=== PATIENT | male | born 1980 | race Caucasian/White ===

== ENCOUNTER 2016-08-11 22:38 | Emergency (ER) | payer OTHER ==
[~2016-08-11] VITALS: Ht 167.6 cm; Wt 102.3 kg
[~2016-08-11 22:38] MED LIST: ATEN100T PO; CIPR500T4 PO; ESCI10TA PO; METR500T PO
[2016-08-11 23:15] VITALS: Ht 167.6 cm; Wt 102.3 kg
[2016-08-11] MEDS ORDERED: KETOROLAC 60 MG INJ IM STA (23:58)
--- NOTE | 2016-08-12 02:02 | RADRPT ---
PROCEDURE: XR Lumbar Spine. CLINICAL INDICATION: Pain. TECHNIQUE: X-ray of the lumbar spine were performed including AP, lateral, and coned L5-S1 views w as performed. COMPARISON: No prior studies are available for comparison. FINDINGS: Vertebral body stature and alignment maintained. There is no evidence of fracture or subluxation. IMPRESSION: No evidence of compression fracture. RPTAT: HIKT .Celso Mclaughlin MD, MD Date Time Electronically viewed and signed by .Celso Mclaughlin MD, on 08/12/2016 02:02 .T/
[2016-08-12] MEDS ORDERED: NAPR-260 PO (02:17)
--- NOTE | 2016-08-12 02:22 | ERD ---
ER Documentation Chief Complaint Date/Time DATE: 08/12/16 TIME: 02:18 Chief Complaint BACK PAIN X 1 WEEK, DENIES RADICULAR PAIN, BOWEL & BLADDER OK HPI 36-year-old male with a past medical history of diverticulitis, chronic back pain, hypertension since the ED complaining of lower back pain that started intermittently since 1995. Describes the pain as achy and rates it a 10/10. States that pain is worse when he moves and upon palpation. States that at this time he had a slip and fall in [place] but no recent injuries. Denies any saddle anesthesia, urine or bowel incontinence, numbness and tingling, chest pain, shortness of breath, abdominal pain, nausea, vomiting. ROS All systems reviewed and are negative except as per history of present illness. Medications Home Meds Active Scripts Metronidazole* (Flagyl*) 500 Mg Tablet, 500 MG PO TID for 10 Days, TAB do not drink alcohol while taking this medication Prov:DANNIE SAGE PA-C 06/08/16 Ciprofloxacin Hcl* (Ciprofloxacin Hcl*) 500 Mg Tablet, 500 MG PO BID for 10 Days , TAB Prov:DANNIE SAGE PA-C 06/08/16 Reported Medications Escitalopram Oxalate* (Lexapro*) 10 Mg Tablet, 10 MG PO DAILY, #30 TAB 03/18/16 Atenolol* (Atenolol*) 100 Mg Tablet, 100 MG PO DAILY, #30 TAB 03/18/16 Allergies Allergies: Coded Allergies: No Known Drug Allergies (Verified Allergy, Unknown, 05/23/16) PMhx/Soc History of Surgery: No Anesthesia Reaction: No Hx Neurological Disorder: No Hx Respiratory Disorders: No Hx Cardiac Disorders: Yes (HTN) Hx Psychiatric Problems: Yes (ANXIETY, DEPRESSION) Hx Miscellaneous Medical Probl: Yes (HYPOTHYROID) Hx Alcohol Use: No Hx Substance Use: No Hx Tobacco Use: No Smoking Status: Never smoker Physical Exam Vitals Vital Signs Date Time Temp Pulse Resp B/P Pulse Ox O2 Delivery O2 Flow Rate FiO2 08/12/16 02:33 97.8 87 20 137/80 98 Room Air 08/11/16 23:15 99.6 120 20 179/95 99 Physical Exam Const: [id number], well-nourished. In no acute distress. Head: Atraumatic, normocephalic Eyes: Normal Conjunctiva without injection. No purulent discharge. ENT: Normal external ear, nose. Moist oropharynx without tonsillar exudates. Non -erythematous pharynx. Uvula midline. No drooling. No trismus. Neck: No cervical midline tenderness. Full range of motion. No meningismus. No cervical lymphadenopathy. No JVD. Resp: Clear to auscultation bilaterally. No wheezing, rhonchi, rales, or crackles. No accessory muscle use. No retractions. Cardio: Regular rate and rhythm. No murmurs, rubs or gallops. Abd: Soft, nontender, non distended. Normal bowel sounds. No palpable masses. No rebound tenderness. No guarding. Negative McBurney's point. Negative psoas sign. Negative obturator sign. Skin: No petechiae or rashes Back: Slight lumbar midline tenderness. Limited range of motion due to pain. Tender to palpation of the lumbar muscles. Pain is reproducible. No CVA tenderness. Ext: No cyanosis, or edema. Neur: Awake and alert. Normal gait. Normal coordination. Psych: Normal Mood and Affect Results 24 hrs Current Medications Medications (Trade) Dose Ordered Sig/Derrek Route PRN Reason Start Time Stop Time Status Last Admin Dose Admin Ketorolac Tromethamine (Toradol) 60 mg ONCE STAT IM 08/11/16 23:58 08/12/16 00:00 DC 08/12/16 01:10 Procedures/MDM This is a 36-year-old male with no significant past medical history presents the ED complaining of chronic lower back pain that has worsened since 1 week ago. Patient is afebrile and nontoxic-appearing. Patient does have midline tenderness, lumbar x-ray was ordered to further evaluate patient. Patient was treated with Toradol here in the ED with improvement of his pain. PROCEDURE: XR Lumbar Spine. CLINICAL INDICATION: Pain. TECHNIQUE: X-ray of the lumbar spine were performed including AP, lateral, and coned L5-S1 views was performed. COMPARISON: No prior studies are available for comparison. FINDINGS: Vertebral body stature and alignment maintained. There is no evidence of fracture or subluxation. IMPRESSION: No evidence of compression fracture. Patient's pain could likely be due to muscular pain since it is worse with movement and is painful upon palpation of lumbar muscles. Patient is ambulating here in the ED without difficulty. Denies saddle anesthesia, numbness or tingling, urine or bowel incontinence, weakness. Low suspicion for cauda equina syndrome, cord compression, nephrolithiasis, aortic aneurysm, aortic dissection , epidural abscess, spinal hematoma, malignancy, pyelonephritis, degenerative disc disease, spinal stenosis, or other emergent conditions. Follow up with primary care physician in 1-2 days for a referral to pain specialist. Instructed patient to return to the ED sooner for any worsening symptoms. Patient's questions were answered. Patient understood and agreed with discharge plan. Patient discharged stable. Departure Diagnosis: Primary Impression: Back pain Back pain location: back pain in unspecified location Chronicity: unspecified Back pain laterality: unspecified Qualified Code: M54.9 - Back pain, unspecified back location, unspecified back pain laterality, unspecified chronicity Condition: Stable Patient Instructions: Back Pain (Acute Or Chronic) Referrals: [facility] YOU HAVE RECEIVED A MEDICAL SCREENING EXAM AND THE RESULTS INDICATE THAT YOU DO NOT HAVE A CONDITION THAT REQUIRES URGENT TREATMENT IN THE EMERGENCY DEPARTMENT. FURTHER EVALUATION AND TREATMENT OF YOUR CONDITION CAN WAIT UNTIL YOU ARE SEEN IN YOUR DOCTORS OFFICE WITHIN THE NEXT 1-2 DAYS. IT IS YOUR RESPONSIBILITY TO MAKE AN APPOINTMENT FOR FOLOW-UP CARE. IF YOU HAVE A PRIMARY DOCTOR --you should call your primary doctor and schedule an appointment IF YOU DO NOT HAVE A PRIMARY DOCTOR YOU CAN CALL OUR PHYSICIAN REFERRAL HOTLINE AT IF YOU CAN NOT AFFORD TO SEE A PHYSICIAN YOU CAN CHOSE FROM THE FOLLOWING [facility] [address] [facility]. [facility] [address] [facility]. [facility] [address] [facility]. [facility] [address] [facility]. [facility] [address] [facility]. [facility]. [address] [facility] YOU HAVE RECEIVED A MEDICAL SCREENING EXAM AND THE RESULTS INDICATE THAT YOU DO NOT HAVE A CONDITION THAT REQUIRES URGENT TREATMENT IN THE EMERGENCY DEPARTMENT. FURTHER EVALUATION AND TREATMENT OF YOUR CONDITION CAN WAIT UNTIL YOU ARE SEEN IN YOUR DOCTORS OFFICE WITHIN THE NEXT 1-2 DAYS. IT IS YOUR RESPONSIBILITY TO MAKE AN APPOINTMENT FOR FOLOW-UP CARE. IF YOU HAVE A PRIMARY DOCTOR --you should call your primary doctor and schedule and appointment IF YOU DO NOT HAVE A PRIMARY DOCTOR YOU CAN CALL OUR PHYSICIAN REFERRAL HOTLINE AT . IF YOU CAN NOT AFFORD TO SEE A PHYSICIAN YOU CAN CHOSE FROM THE FOLLOWING [facility] INSTITUTIONS: [facility] [address] [place] [address] [facility] [address] [place] [address] [facility] + [facility] [address] [place] [address] [facility] 7 a.m.- 11 p.m. Every Day of the Week NO APPOINTMENT OR AUTHORIZATION NEEDED SO [facility] Hours: Mon-Fri 9:00 AM - 5:00 PM Additional Instructions: FOLLOW UP WITH YOUR PRIMARY CARE PHYSICIAN TOMORROW.Return to this facility if you are not improving as expected. DANNIE SAGE PA-C Aug 12, 2016 02:22
[2016-08-12 02:33] VITALS: BP 137/80; PULSE 87; RESP 20; TEMP 97.8
== END 2016-08-12 02:35 | disposition home or self-care (01) ==
LOC: FTE 22:38
DX: M54.5 Low back pain (principal); E03.9 Hypothyroidism, unspecified; I10 Essential (primary) hypertension; E11.9 Type 2 diabetes mellitus without complications
CPT/HCPCS: 72100; 96372; J1885; Z7502

== ENCOUNTER 2017-06-20 22:36 | Emergency (ER) | END 2017-06-21 08:25 | disposition left against medical advice (07) ==

== ENCOUNTER 2018-01-02 13:02 | Emergency (ER) | END 2018-01-02 14:38 | disposition home or self-care (01) ==

== ENCOUNTER 2018-06-07 17:49 | Emergency (ER) | END 2018-06-07 19:50 | disposition home or self-care (01) ==

== ENCOUNTER 2018-06-11 20:06 | Emergency (ER) | END 2018-06-11 22:48 | disposition home or self-care (01) ==

== ENCOUNTER 2018-07-21 23:35 | Emergency (ER) | payer OTHER ==
[~2018-07-21] VITALS: Ht 167.6 cm; Wt 92.9 kg
[~2018-07-21 23:35] MED LIST changes: +ACET160O41 PO; +ACET325T33 PO; +AMOX1TAB10 PO; +DOCU-144 PO; +HC30CR25 TOP; +IBUP-1542 PO; +IBUP800T48 PO; +MED4DP PO
[2018-07-21 23:39] VITALS: BP 162/92; PULSE 103; RESP 20; Ht 167.6 cm; Wt 92.9 kg
--- NOTE | 2018-07-22 00:02 | ERD ---
ER Documentation Chief Complaint Chief Complaint Dizziness, lump on arm and neck HPI 37-year-old male presents with abrasion to his left forearm and posterior scalp. He first noticed it today and has been scratching at it and feels like there is a bump underneath each. No bleeding. No fevers. No warmth. Nontender. ROS All systems reviewed and are negative except as per history of present illness. Medications Home Meds Active Scripts Acetaminophen* (Acetaminophen* Susp) 160 Mg/5 Ml Oral.susp, 320 MG PO Q4H PRN for PAIN OR FEVER MDD 5, #1 BOTTLE Prov:CAIO LAUGHLIN PA-C 06/11/18 Acetaminophen* (Tylenol*) 325 Mg Tablet, 2 TAB PO Q8 PRN for PAIN AND OR ELEVATED TEMP, #20 TAB Prov:CAIO LAUGHLIN PA-C 06/11/18 Methylprednisolone* (Medrol* DOSE PACK) 4 Mg/Dose-Pack Tab.ds.pk, 4 MG PO . DIRECTED, #1 PACKET Prov:CAIO LAUGHLIN PA-C 06/11/18 Ibuprofen* (Motrin*) 800 Mg Tab, 800 MG PO Q6, #30 TAB Prov:CAIO LAUGHLIN PA-C 06/11/18 Amoxicillin/Potassium Clav (Amox-Clav 875-125 mg Tablet) 875-125 mg Tab, 1 TAB PO BID for 7 Days, #14 TAB Prov:CAIO LAUGHLIN PA-C 06/11/18 Ibuprofen* (Motrin*) 600 Mg Tab, 600 MG PO Q6, #30 TAB Prov:AAMIR LO PA-C 06/07/18 Hydrocortisone* Topical (Hydrocortisone* Topical) 2.5%-28.3 Gm Cream..g., 1 APPLIC TOP BID, #1 TUB Prov:CARMEN GLEZ MD 01/02/18 Docusate Sodium* (Colace*) 100 Mg Capsule, 100 MG PO BID, #30 CAP Prov:CARMEN GLEZ MD 01/02/18 Metronidazole* (Flagyl*) 500 Mg Tablet, 500 MG PO TID for 10 Days, TAB do not drink alcohol while taking this medication Prov:DANNIE SAGE PA-C 06/08/16 Ciprofloxacin Hcl* (Ciprofloxacin Hcl*) 500 Mg Tablet, 500 MG PO BID for 10 Days, TAB Prov:SAGEDANNIE Genoveva JIMENEZ 06/08/16 Reported Medications Escitalopram Oxalate* (Lexapro*) 10 Mg Tablet, 10 MG PO DAILY, #30 TAB 03/18/16 Atenolol* (Atenolol*) 100 Mg Tablet, 100 MG PO DAILY, #30 TAB 03/18/16 Allergies Allergies: Coded Allergies: No Known Drug Allergies (Verified Allergy, Unknown, 05/23/16) PMhx/Soc History of Surgery: No Anesthesia Reaction: No Hx Neurological Disorder: Yes Hx Respiratory Disorders: No Hx Cardiac Disorders: Yes (HTN, ) Hx Psychiatric Problems: Yes (ANXIETY) Hx Miscellaneous Medical Probl: Yes (HYPOTHYROID) Hx Alcohol Use: No Hx Substance Use: No Hx Tobacco Use: No Smoking Status: Never smoker FmHx Family History: No diabetes Physical Exam Vitals Vital Signs Date Temp Pulse Resp B/P (MAP) Pulse Ox O2 O2 Flow FiO2 Time Delivery Rate 07/21/18 98.0 103 20 162/92 99 23:39 (115) Physical Exam Const: No acute distress Head: Atraumatic Eyes: Normal Conjunctiva ENT: Normal External Ears, Nose and Mouth. Neck: Full range of motion. No meningismus. Resp: Clear to auscultation bilaterally Cardio: Regular rate and rhythm, no murmurs Skin: Left distal forearm has small abrasion, no surrounding erythema or edema, similar lesion on posterior occipital scalp Procedures/MDM Patient presents with abrasion. They do not appear infected. No indication for further intervention at this time. Patient counseled regarding my diagnostic impression and care plan. Prior to discharge all questions answered. Pt agrees with treatment plan and understands strict return precautions. Pt is instructed to follow up with primary care provider within 24-48 hours. Precautionary instructions provided including instructions to return to the ER if not improving or for any worsening or changing symptoms or concerns. Departure Diagnosis: Primary Impression: Abrasion Condition: Stable Patient Instructions: Abrasion Additional Instructions: Call your primary care doctor TOMORROW for an appointment during the next 1-2 days.See the doctor sooner or return here if your condition worsens before your appointment time. LUIZ MEDINA PA-C Jul 22, 2018 00:02
== END 2018-07-22 00:38 | disposition home or self-care (01) ==
LOC: FTE 23:35
DX: S50.812A Abrasion of left forearm, initial encounter (principal); S00.01XA Abrasion of scalp, initial encounter; I10 Essential (primary) hypertension; E03.9 Hypothyroidism, unspecified; X58.XXXA Exposure to other specified factors, initial encounter; Y92.9 Unspecified place or not applicable
CPT/HCPCS: 99282

== ENCOUNTER 2018-08-21 18:54 | Emergency (ER) | payer OTHER ==
[~2018-08-21] VITALS: Ht 157.5 cm; Wt 91.4 kg
[2018-08-21 19:00] VITALS: Ht 157.5 cm; Wt 91.4 kg
[2018-08-21] MEDS ORDERED: IBUP-1542 PO (21:36)
[2018-08-21] MEDS ORDERED: CEPH-443 PO (21:36)
[2018-08-21] MEDS ORDERED: MUPI22OI2 TOP (21:36)
--- NOTE | 2018-08-21 21:47 | ERD ---
ER Documentation Chief Complaint Chief Complaint left 3rd finger pain x 3 days. denies trauma HPI Patient is a 38-year-old male with history of hypothyroidism, hypertension, and depression who presents to the ED with his sister with complaints of left middle finger pain for the past 3 days. Patient states the pain was initially mild but has since been getting progressively worse. He notes swelling and redness along the proximal nail fold of his left middle finger. Denies any discharge. Denies any known trauma. Denies any history of same. Patient has been taking o [id number] ibuprofen with minimal relief. Denies any fevers, chills, numbness, tingling, focal weakness. No other complaints. ROS All systems reviewed and are negative except as per history of present illness. Medications Home Meds Active Scripts Mupirocin* (Bactroban*) 2% -22 Gram Oint...g., 1 APPLIC TOP BID for 7 Days, EA Prov:LALA FRANCOC 08/21/18 Ibuprofen* (Ibuprofen*) 600 Mg Tablet, 600 MG PO Q6, #30 TAB Prov:LALA FRANCO-C 08/21/18 Cephalexin* (Keflex*) 500 Mg Capsule, 500 MG PO QID for 5 Days, CAP Prov:LALA FRANCO-C 08/21/18 Acetaminophen* (Acetaminophen* Susp) 160 Mg/5 Ml Oral.susp, 320 MG PO Q4H PRN for PAIN OR FEVER MDD 5, #1 BOTTLE Prov:CAIO LAUGHLIN PA-C 06/11/18 Acetaminophen* (Tylenol*) 325 Mg Tablet, 2 TAB PO Q8 PRN for PAIN AND OR ELEVATED TEMP, #20 TAB Prov:CAIO LAUGHLIN PA-C 06/11/18 Methylprednisolone* (Medrol* DOSE PACK) 4 Mg/Dose-Pack Tab.ds.pk, 4 MG PO . DIRECTED, #1 PACKET Prov:CAIO LAUGHLIN PA-C 06/11/18 Ibuprofen* (Motrin*) 800 Mg Tab, 800 MG PO Q6, #30 TAB Prov:CAIO LAUGHLIN PA-C 06/11/18 Amoxicillin/Potassium Clav (Amox-Clav 875-125 mg Tablet) 875-125 mg Tab, 1 TAB PO BID for 7 Days, #14 TAB Prov:CAIO LAUGHLIN PA-C 06/11/18 Ibuprofen* (Motrin*) 600 Mg Tab, 600 MG PO Q6, #30 TAB Prov:AAMIR LO PA-C 06/07/18 Hydrocortisone* Topical (Hydrocortisone* Topical) 2.5%-28.3 Gm Cream..g., 1 APPLIC TOP BID, #1 TUB Prov:CARMEN GLEZ MD 01/02/18 Docusate Sodium* (Colace*) 100 Mg Capsule, 100 MG PO BID, #30 CAP Prov:CARMEN GLEZ MD 01/02/18 Metronidazole* (Flagyl*) 500 Mg Tablet, 500 MG PO TID for 10 Days, TAB do not drink alcohol while taking this medication Prov:DANNIE SAGE PA-C 06/08/16 Ciprofloxacin Hcl* (Ciprofloxacin Hcl*) 500 Mg Tablet, 500 MG PO BID for 10 Days, TAB Prov:DANNIE SAGE PA-C 06/08/16 Reported Medications Escitalopram Oxalate* (Lexapro*) 10 Mg Tablet, 10 MG PO DAILY, #30 TAB 03/18/16 Atenolol* (Atenolol*) 100 Mg Tablet, 100 MG PO DAILY, #30 TAB 03/18/16 Allergies Allergies: Coded Allergies: No Known Drug Allergies (Verified Allergy, Unknown, 05/23/16) PMhx/Soc History of Surgery: No Anesthesia Reaction: No Hx Neurological Disorder: Yes Hx Respiratory Disorders: No Hx Cardiac Disorders: Yes (HTN, ) Hx Psychiatric Problems: Yes (ANXIETY) Hx Miscellaneous Medical Probl: Yes (HYPOTHYROID) Hx Alcohol Use: No Hx Substance Use: No Hx Tobacco Use: No Physical Exam Vitals Vital Signs Date Temp Pulse Resp B/P (MAP) Pulse Ox O2 O2 Flow FiO2 Time Delivery Rate 08/21/18 98.6 111 19 143/95 98 Room Air 21:51 (111) 08/21/18 97.9 120 18 147/80 97 19:00 (102) Physical Exam Const: No acute distress. + Disheveled. Smells of urine. Sitting in wheelchair. Skin: + Erythema and edema along the proximal nailfold of the left middle finger. No abscess seen. Neur: Awake and alert Psych: Normal Mood and Affect Procedures/MDM EMERGENCY DEPARTMENT COURSE / MEDICAL DECISION MAKING: This is a 38-year-old male who presents to the ED with complaints of a paronychia to his left middle finger. Patient has no signs of an abscess or purulent collection on physical exam. I discussed with patient and his sister that I do not think incision and drainage is appropriate at this time. I believe his symptoms can be managed at home with appropriate outpatient therapy. Patient was therefore discharged home with a prescription for oral Keflex and topical mupirocin. I recommended warm water soaks to the finger at least 4 times a day and Ibuprofen for pain. He was told to follow-up with his regular doctor in 2 days, otherwise return to the ED for any new or worsening symptoms. I have low suspicion for sepsis, deep tissue infection, necrotizing fasciitis, testifies any other emergent process. Prior to discharge, patients vital signs have been reviewed SPECIALIST FOLLOW UP RECOMMENDED: None Patient has been advised to follow up with primary care in 1-2 days. Blood Pressure Assessment: Patient's blood pressure was elevated (>120/80) but appears stable without evidence of hypertension emergency or urgency. The patient was counseled about the risks of hypertension and urged to pursue outpatient monitoring and therapy within a week with their primary care physician. Departure Diagnosis: Primary Impression: Paronychia of finger Condition: Stable Patient Instructions: Paronychia Referrals: [facility] YOU HAVE RECEIVED A MEDICAL SCREENING EXAM AND THE RESULTS INDICATE THAT YOU DO NOT HAVE A CONDITION THAT REQUIRES URGENT TREATMENT IN THE EMERGENCY DEPARTMENT. FURTHER EVALUATION AND TREATMENT OF YOUR CONDITION CAN WAIT UNTIL YOU ARE SEEN IN YOUR DOCTORS OFFICE WITHIN THE NEXT 1-2 DAYS. IT IS YOUR RESPONSIBILITY TO MAKE AN APPOINTMENT FOR FOL-UP CARE. IF YOU HAVE A PRIMARY DOCTOR --you should call your primary doctor and schedule an appointment IF YOU DO NOT HAVE A PRIMARY DOCTOR YOU CAN CALL OUR PHYSICIAN REFERRAL HOTLINE AT IF YOU CAN NOT AFFORD TO SEE A PHYSICIAN YOU CAN CHOSE FROM THE FOLLOWING [facility] [address] [facility] [address] [facility] [address] [facility] [address] [facility] [address] [facility]. [facility] [address] Additional Instructions: I recommend warm water soaks 4 times a day for about 10 minutes each. You can apply the topical antibiotic after soaking her finger. Also take the oral antibiotic as prescribed. See your regular doctor in 2 days otherwise return to the ED for any new or worsening symptoms. LALA FRANCO PA-C Aug 21, 2018 21:47
[2018-08-21 21:51] VITALS: BP 143/95; PULSE 111; RESP 19
== END 2018-08-21 21:53 | disposition home or self-care (01) ==
LOC: FTE 18:54
DX: L03.012 Cellulitis of left finger (principal); E03.9 Hypothyroidism, unspecified; I10 Essential (primary) hypertension
CPT/HCPCS: 99283

== ENCOUNTER 2018-09-17 18:53 | Emergency (ER) | payer MEDICARE, OTHER ==
[~2018-09-17] VITALS: Ht 157.5 cm; Wt 92.3 kg
[~2018-09-17 18:53] MED LIST changes: +CEPH-443 PO; +MUPI22OI2 TOP
[2018-09-17 19:37] VITALS: BP 141/70; PULSE 106; RESP 18; Ht 157.5 cm; Wt 92.3 kg
[2018-09-17] MEDS ORDERED: ACETAMINOPHEN 500 MG TAB PO STA (23:24)
[2018-09-18] MEDS ORDERED: CIPR500T4 PO (01:00)
[2018-09-18] MEDS ORDERED: ACET500C5 PO (01:00)
--- NOTE | 2018-09-18 01:16 | ERD ---
ER Documentation Chief Complaint Chief Complaint generalized AP X 1 day HPI Patient is a 30-year-old male with a history of hypertension, hypothyroidism, diverticulitis, presents the ER for concerns of generalized abdominal pain times 1 day. Patient describes the pain to be sharp and throughout his abdomen. Patient states he occasionally does have diarrhea however at this time he does not have any.. Patient denies fevers, chills, nausea, vomiting, rectal bleeding. Patient denies any chest pain or shortness of breath. Patient denies any recent travel. ROS All systems reviewed and are negative except as per history of present illness. Medications Home Meds Active Scripts Acetaminophen* (Tylophen*) 500 Mg Capsule, 1 CAP PO Q6H PRN for PAIN AND OR ELEVATED TEMP, #20 CAP Prov:CESIA GAGE PA-C 09/18/18 Ciprofloxacin Hcl* (Ciprofloxacin Hcl*) 500 Mg Tablet, 500 MG PO BID for 7 Days, TAB Prov:CESIA GAGE PA-C 09/18/18 Mupirocin* (Bactroban*) 2% -22 Gram Oint...g., 1 APPLIC TOP BID for 7 Days, EA Prov:DISHIGRIKIANLALA N PA-C 08/21/18 Ibuprofen* (Ibuprofen*) 600 Mg Tablet, 600 MG PO Q6, #30 TAB Prov:LUANNIGRIKIANALVINAUR N PA-C 08/21/18 Cephalexin* (Keflex*) 500 Mg Capsule, 500 MG PO QID for 5 Days, CAP Prov:DISHIGRIKIANZEPYUR N PA-C 08/21/18 Acetaminophen* (Acetaminophen* Susp) 160 Mg/5 Ml Oral.susp, 320 MG PO Q4H PRN for PAIN OR FEVER MDD 5, #1 BOTTLE Prov:CAIO LAUGHLINC 06/11/18 Acetaminophen* (Tylenol*) 325 Mg Tablet, 2 TAB PO Q8 PRN for PAIN AND OR ELEVATED TEMP, #20 TAB Prov:CAIO LAUGHLINC 06/11/18 Methylprednisolone* (Medrol* DOSE PACK) 4 Mg/Dose-Pack Tab.ds.pk, 4 MG PO . DIRECTED, #1 PACKET Prov:CAIO LAUGHLIN PA-C 06/11/18 Ibuprofen* (Motrin*) 800 Mg Tab, 800 MG PO Q6, #30 TAB Prov:CAIO LAUGHLIN PA-C 06/11/18 Amoxicillin/Potassium Clav (Amox-Clav 875-125 mg Tablet) 875-125 mg Tab, 1 TAB PO BID for 7 Days, #14 TAB Prov:CAIO LAUGHLIN PA-C 06/11/18 Ibuprofen* (Motrin*) 600 Mg Tab, 600 MG PO Q6, #30 TAB Prov:AAMIR LO PA-C 06/07/18 Hydrocortisone* Topical (Hydrocortisone* Topical) 2.5%-28.3 Gm Cream..g., 1 APPLIC TOP BID, #1 TUB Prov:CARMEN GLEZ MD 01/02/18 Docusate Sodium* (Colace*) 100 Mg Capsule, 100 MG PO BID, #30 CAP Prov:CARMEN GLEZ MD 01/02/18 Metronidazole* (Flagyl*) 500 Mg Tablet, 500 MG PO TID for 10 Days, TAB do not drink alcohol while taking this medication Prov:DANNIE SAGE PA-C 06/08/16 Ciprofloxacin Hcl* (Ciprofloxacin Hcl*) 500 Mg Tablet, 500 MG PO BID for 10 Days, TAB Prov:DANNIE SAGE PA-C 06/08/16 Reported Medications Escitalopram Oxalate* (Lexapro*) 10 Mg Tablet, 10 MG PO DAILY, #30 TAB 03/18/16 Atenolol* (Atenolol*) 100 Mg Tablet, 100 MG PO DAILY, #30 TAB 03/18/16 Allergies Allergies: Coded Allergies: No Known Drug Allergies (Verified Allergy, Unknown, 05/23/16) PMhx/Soc History of Surgery: No Anesthesia Reaction: No Hx Neurological Disorder: Yes Hx Respiratory Disorders: No Hx Cardiac Disorders: Yes (HTN, ) Hx Psychiatric Problems: Yes (ANXIETY) Hx Miscellaneous Medical Probl: Yes (HYPOTHYROID) Hx Alcohol Use: No Hx Substance Use: No Hx Tobacco Use: No FmHx Family History: No diabetes Physical Exam Vitals Vital Signs Date Temp Pulse Resp B/P (MAP) Pulse Ox O2 O2 Flow FiO2 Time Delivery Rate 09/17/18 98.3 106 18 141/70 96 19:37 (93) Physical Exam GENERAL: Well-developed, well-nourished male. Appears in no acute distress. HEAD: Normocephalic, atraumatic. EYES: Pupils are equally reactive bilaterally. EOMs grossly intact. No conjunctival erythema. ENT: Moist mucous membranes. No uvula deviation. No kissing tonsils. NECK: Supple. No meningismus. Normal range of motion of the neck. LUNG: Clear to auscultation bilaterally. No rhonchi, wheezing, rales or coarse breath sounds. HEART: Regular rate and rhythm. No murmurs, rubs or gallops. ABDOMEN: Diffuse pain throughout the abdomen. No rebound tenderness, no guarding. (-) McBurney's point tenderness. No CVA tenderness. BACK: No midline tenderness. EXTREMITIES: Equal pulses bilaterally. No peripheral clubbing, cyanosis or edema. No unilateral leg swelling. NEUROLOGIC: Alert and oriented. Moving all four extremities without any difficulty. Normal speech. Steady gait. SKIN: Normal color. Warm and dry. No rashes or lesions. Result Diagram: 09/17/18 2348 09/17/18 2348 Results 24 hrs Laboratory Tests Test 09/17/18 23:47 09/17/18 23:48 Urine Color YELLOW Urine Clarity SLIGHTLY CLOUDY Urine pH 6.0 Urine Specific [place] 1.015 Urine Ketones NEGATIVE mg/dL Urine Nitrite NEGATIVE mg/dL Urine Bilirubin NEGATIVE mg/dL Urine Urobilinogen NEGATIVE mg/dL Urine Leukocyte Esterase 1+ Anahi/ul Urine Microscopic RBC 1 /HPF Urine Microscopic WBC 24 /HPF Urine Squamous Epithelial Cells FEW /HPF Urine Mucus FEW /HPF Urine Hemoglobin NEGATIVE mg/dL Urine Glucose NEGATIVE mg/dL Urine Total Protein NEGATIVE mg/dl White Blood Count 8.0 10^3/ul Red Blood Count 5.54 10^6/ul Hemoglobin 15.5 g/dl Hematocrit 47.9 % Mean Corpuscular Volume 86.5 fl Mean Corpuscular Hemoglobin 28.0 pg Mean Corpuscular Hemoglobin Concent 32.4 g/dl Red Cell Distribution Width 12.3 % Platelet Count 257 10^3/UL Mean Platelet Volume 11.8 fl Immature Granulocytes % 0.400 % Neutrophils % 58.5 % Lymphocytes % 29.6 % Monocytes % 8.3 % Eosinophils % 2.3 % Basophils % 0.9 % Nucleated Red Blood Cells % 0.0 /100WBC Immature Granulocytes # 0.030 10^3/ul Neutrophils # 4.7 10^3/ul Lymphocytes # 2.4 10^3/ul Monocytes # 0.7 10^3/ul Eosinophils # 0.2 10^3/ul Basophils # 0.1 10^3/ul Nucleated Red Blood Cells # 0.0 10^3/ul Sodium Level 141 mmol/L Potassium Level 4.1 mmol/L Chloride Level 99 mmol/L Carbon Dioxide Level 29 mmol/L Anion Gap 13 Blood Urea Nitrogen 5 mg/dl Creatinine 0.68 mg/dl Est Glomerular Filtrat Rate mL/min > 60 mL/min Glucose Level 99 mg/dl Calcium Level 9.2 mg/dl Total Bilirubin 0.4 mg/dl Direct Bilirubin 0.00 mg/dl Indirect Bilirubin 0.4 mg/dl Aspartate Amino Transf (AST/SGOT) 25 IU/L Alanine Aminotransferase (ALT/SGPT) 21 IU/L Alkaline Phosphatase 85 IU/L Total Protein 8.3 g/dl Albumin 4.6 g/dl Globulin 3.70 g/dl Albumin/Globulin Ratio 1.24 Lipase 57 U/L Current Medications Medications Dose Sig/Derrek Start Time Status Last (Trade) Ordered Route PRN Stop Time Admin Dose Reason Admin 1,000 mg ONCE STAT 09/17/18 DC 09/17/18 Acetaminophen PO 23:24 23:36 (Tylenol 09/17/18 23:25 Tab) Procedures/MDM Patient: LITO LOCO : 1980 Age: 38 Sex: M MR #: [id number] DOS: 09/17/18 2324 Ordering MD: CESIA GAGE PA-C Location: [facility] Room/Bed: PROCEDURE: CT Abdomen and Pelvis Without Intravenous Contrast CLINICAL INDICATION: Abdominal pain. TECHNIQUE: Axial computed tomography images of the abdomen and pelvis without intravenous contrast. Sagittal and coronal reformatted images were created and reviewed. CTDIvol (mGy) = 13.93; total DLP (mGy-cm) = 926.56. This CT exam was performed using one or more of the following dose reduction techniques: automated exposure control, adjustment of the mA and/or kV according to patient size, a nd/or use of iterative reconstruction technique. DICOM images are available. COMPARISON: None FINDINGS: LUNG BASES: Unremarkable. No mass. No consolidation. ABDOMEN: LIVER: Unremarkable. GALLBLADDER AND BILE DUCTS: Unremarkable. No calcified stones. No ductal dilation. PANCREAS: Unremarkable. No ductal dilation. SPLEEN: Unremarkable. No splenomegaly. ADRENALS: Unremarkable. No mass. KIDNEYS AND URETERS: 1.6 cm left renal cyst. The kidneys are otherwise morph ologically normal. No nephrolithiasis. No hydronephrosis. No obstructive uropathy. STOMACH AND BOWEL: Small hiatal hernia. No acute gastric abnormality. Mild diverticulosis of the colon. No findings of acute diverticulitis. No obstruction. PELVIS: APPENDIX: No findings to suggest acute appendicitis. BLADDER: Unremarkable. No stones. REPRODUCTIVE: Unremarkable as visualized. ABDOMEN and PELVIS: INTRAPERITONEAL SPACE: Unremarkable. No free air. No significant fluid collection. BONES/JOINTS: No acute fracture. No dislocation. SOFT TISSUES: Unremarkable. VASCULATURE: Unremarkable. LYMPH NODES: Unremarkable. No enlarged lymph nodes. IMPRESSION: 1. Mild diverticulosis of the colon. No findings of acute diverticulitis. 2. No acute abnormality demonstrated in the abdomen and pelvis. RPTAT: [facility] Staci Esparza Physician Set Off Blocker Date Time Electronically viewed and signed by Staci Esparza Physician Set Off Blocker on 09/18/2018 00:51 C/ CC: CESIA GAGE PA-C [id number] MEDICAL DECISION MAKING: This is a 38-year-old male with history of diverticulitis, hypertension, hypothyroidism, presents the ER for concerns of diffuse abdominal pain times 1 day.. Vital signs were reviewed. Patient is afebrile. Blood work was obtained. CBC showed no evidence of systemic infection or severe anemia. CMP showed no evidence of electrolyte abnormalities, severe acidosis, alkalosis, renal failure, or liver disease. Lipase showed no evidence of acute pancreatitis. UA did show 1+ leukocyte esterase, positive WBCs. Urine was sent for culture. CT abdomen pelvis showed findings consistent with diverticulosis however no evidence of diverticulitis. At this time, patient's presentation is most consistent with diverticulosis and UTI. Differential diagnosis included but was not limited to acute coronary syndrome, AAA, mesenteric ischemia, lower lobe pneumonia, DKA, bowel perforation, cholecystitis, choledocholithiasis, ascending cholangitis, hepatic abscess, pancreatitis, PUD, gastritis, GERD, splenic rupture, diverticulitis, pyelonephritis, nephrolithiasis, appendicitis, constipation, testicular torsion, epididymitis, urethritis, or prostatitis. She was nontoxic, [id number] prior to discharge. PRESCRIPTIONS: Tylenol, ciprofloxacin DISCHARGE: At this time, patient is stable for discharge and outpatient management. I have instructed the patient to follow-up with his/her primary care physician in 1-2 days. I have instructed the patient to promptly return to the ER at any time for any new or worsening symptoms including increased pain, nausea, vomiting, diarrhea, fever, weakness or LOC. The patient and/or family expressed understanding of and agreement with this plan. All questions were answered. Home care instructions were provided. Disclaimer: Inadvertent spelling and grammatical errors are likely due to EHR/dictation software use and do not reflect on the overall quality of patient care. Also, please note that the electronic time recorded on this note does not necessarily reflect the actual time of the patient encounter. Departure Diagnosis: Primary Impression: Diverticulosis Additional Impression: UTI (urinary tract infection) Condition: Stable Patient Instructions: Understanding Urinary Tract Infections (UTIs) Referrals: [facility] YOU HAVE RECEIVED A MEDICAL SCREENING EXAM AND THE RESULTS INDICATE THAT YOU DO NOT HAVE A CONDITION THAT REQUIRES URGENT TREATMENT IN THE EMERGENCY DEPARTMENT. FURTHER EVALUATION AND TREATMENT OF YOUR CONDITION CAN WAIT UNTIL YOU ARE SEEN IN YOUR DOCTORS OFFICE WITHIN THE NEXT 1-2 DAYS. IT IS YOUR RESPONSIBILITY TO MAKE AN APPOINTMENT FOR FOLOW-UP CARE. IF YOU HAVE A PRIMARY DOCTOR --you should call your primary doctor and schedule an appointment IF YOU DO NOT HAVE A PRIMARY DOCTOR YOU CAN CALL OUR PHYSICIAN REFERRAL HOTLINE AT IF YOU CAN NOT AFFORD TO SEE A PHYSICIAN YOU CAN CHOSE FROM THE FOLLOWING [facility] [address] [facility] [address] [facility] [address] [facility] [address] [facility] [address] [facility] [facility] [address] [facility]. [facility] YOU HAVE RECEIVED A MEDICAL SCREENING EXAM AND THE RESULTS INDICATE THAT YOU DO NOT HAVE A CONDITION THAT REQUIRES URGENT TREATMENT IN THE EMERGENCY DEPARTMENT. FURTHER EVALUATION AND TREATMENT OF YOUR CONDITION CAN WAIT UNTIL YOU ARE SEEN IN YOUR DOCTORS OFFICE WITHIN THE NEXT 1-2 DAYS. IT IS YOUR RESPONSIBILITY TO MAKE AN APPOINTMENT FOR FOLOW-UP CARE. IF YOU HAVE A PRIMARY DOCTOR --you should call your primary doctor and schedule and appointment IF YOU DO NOT HAVE A PRIMARY DOCTOR YOU CAN CALL OUR PHYSICIAN REFERRAL HOTLINE AT . IF YOU CAN NOT AFFORD TO SEE A PHYSICIAN YOU CAN CHOSE FROM THE FOLLOWING [facility] INSTITUTIONS: [facility] [address] [place] [address] [facility] [address] [place] [address] [facility] [address] [place] [address] Additional Instructions: Call your primary care doctor TOMORROW for an appointment during the next 1-2 days.See the doctor sooner or return here if your condition worsens before your appointment time. CESIA GAGE PA-C Sep 18, 2018 01:15
== END 2018-09-18 01:04 | disposition home or self-care (01) ==
LOC: FTE 18:53
DX: K57.30 Diverticulosis of large intestine without perforation or abscess without bleeding (principal); I10 Essential (primary) hypertension; E03.9 Hypothyroidism, unspecified; N39.0 Urinary tract infection, site not specified
CPT/HCPCS: 74176; 80053; 81001; 83690; 85025; 87086